=== PATIENT | female | born 2000 | race Caucasian/White ===

== ENCOUNTER 2024-10-20 08:15 | Emergency (ER) | payer MEDICAID, SELFPAY ==
[2024-10-20 08:24] VITALS: BP 150/83; PULSE 99; RESP 20; TEMP 37.7; O2SAT 94; BMI 35.2
--- NOTE | 2024-10-20 08:48 | XR_ITS ---
Examination: PA lateral chest 2 views TECHNIQUE: Upright PA lateral chest 2 views Exam date and time: October 20, 2024 0913 hours INDICATIONS: Shortness of breath coughing today. FINDINGS: Normal heart size Lungs are clear. The osseous structures are intact IMPRESSION: No active disease
--- NOTE | 2024-10-20 08:49 | PD.EDSOB ---
ED SOB =RME/HPI General Chief Complaint: Shortness of Breath/Dyspnea Stated Complaint: DIFF BREATHING SINCE LAST NIGHT Time Seen by Provider: 10/20/24 08:41 Source: patient Arrival date/time: 10/20/24 08:15 This is a 24-year-old female who presents to the emergency with complaints of shortness of breath and wheezing. Patient reports she is a smoker smokes about half a pack a day has been smoking for 1 year. Patient has not been diagnosed with asthma. Does not own a albuterol inhaler. Denies fever, chills or chest pain. Mode of arrival: ambulatory Related Data Previous Rx's ?Medication ?Instructions ?Recorded albuterol sulfate 90 mcg/actuation 2 puff inhalation QID PRN 11/22/20 aerosol inhaler (ProAir HFA) shortness of breath or wheezing #8.5 grams albuterol sulfate 90 mcg/actuation 2 inh inhalation Q6H PRN shortness 10/20/24 breath activated powder inhaler of breath or wheezing #1 ea ipratropium bromide 17 2 puff inhalation Q8H #12.9 grams 10/20/24 mcg/actuation HFA aerosol inhaler Allergies Allergy/AdvReac Type Severity Reaction Status Date / Time cephalexin Allergy Severe HIVES Verified 10/20/24 08:17 Penicillins Allergy Severe HIVES Verified 10/20/24 08:17 sulfamethoxazole Allergy Severe HIVES Verified 10/20/24 08:17 trimethoprim Allergy Severe HIVES Verified 10/20/24 08:17 Review of Systems Review of Systems Systems Reviewed: All systems reviewed, normal except as documented Narrative Review of Systems: Gen: No fever, no chills, no weight loss EYES: No discharge, no visual changes, no pain HEENT: No ear pain, no congestion, no sore throat PULM: No shortness of breath, ++ cough, congestion, wheezing CV: No chest pain, no dyspnea on exertion, no palpitations GI: No nausea, no vomiting, no diarrhea, no pain, no constipation : No frequency, no urgency,? no dysuria Musc/skel: No joint pain, no back pain Skin: No rash? Psyc: No hallucinations, no depression Heme/Lymph: No easy bleeding or bruising tendencies Neuro: No weakness, no headache ED Exam Narrative Physical exam: General: Sittiing in Exam table in no acute distress, answering questions appropriately HENT: normocephalic, atraumatic, EOMI, PERRLA, moist mucous membranes Chest: chest wall is nontender Cardiac: regular rate and rhythm, normal S1 and S2, no murmurs, rubs, or gallops, capillary refill ?2 seconds Pulmonary:+ Positive cough, wheezing upper airways Abdominal: active bowel sounds, soft, nontender, nondistended Neuro: A&OX3, CN II-XII intact, sensation grossly intact bilaterally in UE and LE. Skin: no rashes, no ecchymosis Ext: no lower extremity edema Course Quality Measures none Orders Category Date Time Status Bedside COVID-19 Antigen Test NOW Care 10/20/24 08:48 Completed Bedside Influenza A&B Antigen Test NOW Care 10/20/24 08:49 Completed XR chest 2V Stat Exams 10/20/24 08:48 Completed ALBUTEROL RT 0.5ml [Proventil Rt 0.5ml] Med 10/20/24 11:00 Discontinued 5 mg INH X1 ONE Albuterol/Ipratr Rt Demetra [Duoneb Rt Demetra] Med 10/20/24 08:48 Discontinued 3 ml INH X1 ONE MethylPREDNISolone.* [SoluMEDROL Inj] Med 10/20/24 08:48 Discontinued 125 mg IM X1 ONE Sodium Chloride Rt Demetra 0.9% [NS Rt Demetra 0.9%] Med 10/20/24 11:00 Discontinued 3 ml INH PRN PRN Vital Signs Vital signs: Vital Signs Temperature 99.8 F 10/20/24 08:24 Pulse Rate 99 10/20/24 08:24 Respiratory Rate 20 10/20/24 08:24 Blood Pressure 150/83 H 10/20/24 08:24 Pulse Oximetry (%) 94 L 10/20/24 08:24 Oxygen Delivery Method Room Air 10/20/24 08:24 Shortness of Breath / Dyspnea MDM Narrative MDM Narrative:: Patient has improved there is no more wheezing, no more coughing at this time. No respiratory distress at upon reassessment presentation. Patient's lung sounds improved with nebulizer treatments given in the ED. The patient is without hypoxia, without fever and is tolerating POs. Doubt pneumonia given no focal lung abnormalities and patient is afebrile. Patient is stable for discharge home. Patient to follow up with PMD in 2 days. Strict return to ED precautions given to parent. Patient verbalized understanding. Patient data External records reviewed:: [facility] [place] previous records Clinical information provided by:: patient Social determinants that could affect healthcare access:: none Patient has the following chronic illnesses:: no How is presenting disease/condition affected by chronic disease/condition?: no chronic disease Evaluation data The following diagnostics were reviewed and interpreted by me:: lab results and radiology exam(s) Lab and/or radiology exams considered but not ordered:: no Interpretation Summary: see above Medications / Prescriptions Medications or Prescriptions considered but not ordered:: no Medication administrations:: Medication Administration History Discontinued Medications Albuterol (Albuterol Rt 2.5 Mg/0.5 Ml Nebu) 5 mg INH X1 ONE Stop: 10/20/24 11:01 Last Admin: 10/20/24 11:37 Dose: 5 mg Documented By: EV Albuterol/Ipratropium (Albuterol/Ipratropium (Duoneb) Rt Demetra 3 Ml Nebu) 3 ml INH X1 ONE Stop: 10/20/24 08:49 Last Admin: 10/20/24 09:03 Dose: 3 ml Documented By: LO Methylprednisolone Sodium Succinate (Methylprednisolone Sod Succ 62.5 Mg/Ml 2ml Vial) 125 mg IM X1 ONE Stop: 10/20/24 08:49 Last Admin: 10/20/24 09:51 Dose: 125 mg Documented By: FC Sodium Chloride (Sodium Chloride Rt Demetra 0.9% 3 Ml Nebu) 3 ml INH PRN PRN PRN Reason: SOLN Stop: 11/19/24 10:59 Last Admin: 10/20/24 11:37 Dose: 3 ml Documented By: EV All medications administered and effective Consultations Consultation(s) initiated? (list below): No Diagnosis Shortness of Breath Differential Diagnosis: acute exacerbation of chronic obstructive airways disease, community acquired pneumonia and asthma with exacerbation Most likely diagnosis given after review of the tests above:: Asthma exacerbation Admission Indicated Admission indicated?: not indicated Admission Request Was there a request for admission?: No Disposition Plan Disposition Plan: Discharge Discharge Attestation Discharge Attestation: The patient and all family members were given an opportunity to ask questions and understood the discharge instructions. Discharge instructions specifically effects, indications for sooner follow up or return to the emergency department, and the expected course of current diagnosis. Patient condition: Stable Discharge Plan Plan Patient Disposition: HOME (Self Care) Patient condition on transfer: Stable Prescriptions/Referrals Prescriptions/Med Rec: New albuterol sulfate 90 mcg/actuation aerosol powdr breath activated 2 inh inhalation Q6H PRN (Reason: shortness of breath or wheezing) Qty: 1 0RF ipratropium bromide 17 mcg/actuation HFA aerosol inhaler 2 puff inhalation Q8H Qty: 12.9 0RF No Action albuterol sulfate [ProAir HFA] 90 mcg/actuation HFA aerosol inhaler 2 puff inhalation QID PRN (Reason: shortness of breath or wheezing) Qty: 8.5 0RF Problem List Clinical Impression: Bronchitis with influenza Patient/Caregiver Discharge Instructions Discharge Activity: activity as tolerated Education Materials: ED Influenza (Adult) Additional Instructions: Your rapid influenza test was positive. Start Tamiflu, antipyretics to pharmacy. 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 Please follow-up with your clinic 3-day follow-up. If you develop any type of respiratory distress or change in condition please go immediately to nearest emergency department Print Language: Ukrainian Stand Alone Forms: Johanna Award Info., Patient Portal Info Letter PA/ARTIST AND REPERTOIRE MANAGER Supervising Physician PA/ARTIST AND REPERTOIRE MANAGER Supervising Physician: Dr Echols
[2024-10-20] MEDS: ALBUTEROL/IPRATROPIUM (Duoneb) RT SOL 3 ML NEBU INH (09:03)
[2024-10-20 09:04] VITALS: PULSE 95; RESP 22; O2SAT 100
[2024-10-20] MEDS: MethylPREDNISolone SOD SUCC 62.5 MG/ML 2ML VIAL 125 MG IM (09:51)
[2024-10-20 11:36] VITALS: PULSE 115; RESP 18; O2SAT 100
[2024-10-20 11:37] VITALS: PULSE 109
[2024-10-20] MEDS: ALBUTEROL RT 2.5 MG/0.5 ML NEBU 5 MG INH (11:37)
[2024-10-20] MEDS: SODIUM CHLORIDE RT SOL 0.9% 3 ML NEBU INH (11:37)
[2024-10-20 11:43] VITALS: BP 109/75; PULSE 104; RESP 20; TEMP 37.7; O2SAT 95
== END 2024-10-20 11:45 | disposition home or self-care (01) ==
LOC: SERX 10:46
PROVIDERS: Emergency Provider Emergency Medicine; PCP Registered Nurse Community Health
DX: J40 Bronchitis, not specified as acute or chronic (principal); J11.1 Influenza due to unidentified influenza virus with other respiratory manifestations; F17.210 Nicotine dependence, cigarettes, uncomplicated
CPT/HCPCS: 71046; 87400; 87811; 94640; 96372; 99284; A9270; J2919